=== PATIENT | female | born 1975 | race Two or more races ===

== ENCOUNTER 2024-04-08 10:21 | Emergency (ER) | payer MEDICAID, SELFPAY ==
[2024-04-08 10:32] VITALS: BP 142/77; PULSE 83; RESP 19; TEMP 36.8; O2SAT 97
[2024-04-08 11:01] VITALS: BMI 42.3
--- NOTE | 2024-04-08 11:25 | XR_ITS ---
Examination: PA lateral chest 2 views Technique: Upright PA lateral chest 2 views Exam date and time: April 08, 2024 11:37 AM Comparison March 18, 2020 Indications: Chest pain shortness of breath beginning 3 days ago. Findings: Minimal prominence cardiac contour Mild vascular congestion. No lobar pneumonia or pulmonary edema Impression: Mild vascular congestion
--- NOTE | 2024-04-08 11:25 | PD.EDURI ---
Upper Respiratory Inf. RME/HPI General Chief Complaint: Flu Like Symptoms Stated Complaint: SOB, COUGH, WHEEZING, CHEST PAIN, DIZZINESS Time Seen by Provider: 04/08/24 11:06 Arrival date/time: 04/08/24 10:21 This is a 48-year-old female that comes in with complaints of cough wheezing. Patient states that she was recently diagnosed with influenza on Wednesday patient continues to be on. Tamiflu. Patient notices that she coughs and has a lot of wheezing. Patient denies any past medical history Related Data Home Medications ?Medication ?Instructions ?Recorded ?Confirmed estradiol 1 mg tablet 1 mg PO QHSPRN PRN hormones 07/06/22 07/06/22 medroxyprogesterone 5 mg tablet 5 mg PO QDAY 07/06/22 Previous Rx's ?Medication ?Instructions ?Recorded hydrocodone 5 mg-acetaminophen 325 1 tab PO TID PRN pain #20 tabs 04/30/22 mg tablet albuterol sulfate 90 mcg/actuation 2 puff inhalation QID PRN 04/08/24 aerosol inhaler shortness of breath or wheezing #8.5 grams benzonatate 100 mg capsule 100 mg PO BID PRN cough #14 caps 04/08/24 ibuprofen 800 mg tablet 800 mg PO Q6H PRN pain #10 tabs 04/08/24 Allergies Allergy/AdvReac Type Severity Reaction Status Date / Time No Known Allergies Allergy Verified 07/07/22 07:32 Review of Systems Review of Systems Systems Reviewed: All systems reviewed, normal except as documented Past Medical History Past Medical History CARDIAC: Negative Congestive Heart Failure RESPIRATORY: Negative Chronic Obstructive Pulmonary Disease (COPD) GENITOURINARY: Positive Genitourinary Disorders; Negative Renal Disease ENDOCRINE: Negative Diabetes Mellitus Type 1 or Diabetes Mellitus Type 2 HEMATOLOGIC: Negative Sickle Cell Disease OTHER HISTORY: Negative Blood Transfusions Surgical History SURGICAL: Positive Abdominal Surgery and Tubal Ligation Social History SMOKING STATUS: Never smoker ED Exam General General appearance: Present alert and in no apparent distress Head Head exam: Present atraumatic Eye Eye exam: Present normal appearance, PERRL and EOMI ENT ENT exam: Present normal exam, normal oropharynx and mucous membranes moist Neck Neck exam: Present normal inspection, full ROM and trachea midline Chest Chest inspection: Present normal inspection and symmetric chest wall rise Respiratory Respiratory exam: Present other (mild expiratory wheezing posteriorly ) Cardiovascular Cardiovascular exam: Present regular rate, normal rhythm and normal heart sounds Abdominal Exam Abdominal exam: Present soft and normal bowel sounds Extremities Exam Extremities exam: Present normal inspection and full ROM Back Exam Back exam: Present normal inspection and full ROM Neurological Exam Neurological exam: Present alert, oriented X3 and CN II-XII intact Psychiatric Psychiatric exam: Present normal affect and normal mood Skin Skin exam: Present warm, dry, intact and normal color Course Quality Measures none Orders Category Date Time Status XR chest 2V Stat Exams 04/08/24 11:25 Completed ALBUTEROL RT 0.5ml [Proventil Rt 0.5ml] Med 04/08/24 11:24 Discontinued 2.5 mg INH X1 ONE Ibuprofen Tab [Motrin Tab] Med 04/08/24 11:25 Discontinued 800 mg PO X1 ONE Sodium Chloride Rt Tiara 0.9% [NS Rt Tiara 0.9%] Med 04/08/24 11:24 Discontinued 3 ml INH PRN PRN Vital Signs Vital signs: Vital Signs Temperature 98.3 F 04/08/24 10:32 Pulse Rate 83 04/08/24 10:32 Respiratory Rate 19 04/08/24 10:32 Blood Pressure 142/77 H 04/08/24 10:32 Pulse Oximetry (%) 97 04/08/24 10:32 Oxygen Delivery Method Room Air 04/08/24 10:32 Upper Respiratory Infection MDM Narrative MDM Narrative:: chest x ray: Findings: Minimal prominence cardiac contour Mild vascular congestion. No lobar pneumonia or pulmonary edema Impression: Mild vascular congestion Pt given a breathing tx of albuterol and ibuprofen Pt feels better. Encouraged supportive measures such as rest and increased po intake. Pt told to come back to ED if symptoms change or worsen. Patient data External records reviewed:: [facility] previous records Clinical information provided by:: patient Social determinants that could affect healthcare access:: none Patient has the following chronic illnesses:: none How is presenting disease/condition affected by chronic disease/condition?: no chronic disease Evaluation data The following diagnostics were reviewed and interpreted by me:: radiology exam(s) Lab and/or radiology exams considered but not ordered:: none Interpretation Summary: see note Medications / Prescriptions Medications or Prescriptions considered but not ordered:: none Medication administrations:: Medication Administration History Discontinued Medications Albuterol (Albuterol Rt 2.5 Mg/0.5 Ml Nebu) 2.5 mg INH X1 ONE Stop: 04/08/24 11:25 Last Admin: 04/08/24 12:03 Dose: 2.5 mg Documented By: GEOVANNY Ibuprofen (Ibuprofen Tab 400 Mg Tablet) 800 mg PO X1 ONE Stop: 04/08/24 11:26 Last Admin: 04/08/24 11:45 Dose: 800 mg Documented By: CLEMENCIA Sodium Chloride (Sodium Chloride Rt Tiara 0.9% 3 Ml Nebu) 3 ml INH PRN PRN PRN Reason: SOLN Stop: 05/08/24 11:23 Last Admin: 04/08/24 12:03 Dose: 3 ml Documented By: GEOVANNY see mar Consultations Consultation(s) initiated? (list below): No Diagnosis Upper Respiratory Differential Diagnosis: upper respiratory infection, sinusitis, viral infection, bronchitis and influenza Most likely diagnosis given after review of the tests above:: rad Admission Indicated Admission indicated?: not indicated Admission Request Was there a request for admission?: No Disposition Plan Disposition Plan: Discharge Discharge Attestation Discharge Attestation: The patient and all family members were given an opportunity to ask questions and understood the discharge instructions. Discharge instructions specifically effects, indications for sooner follow up or return to the emergency department, and the expected course of current diagnosis. Patient condition: Stable Discharge Plan Plan Patient Disposition: HOME (Self Care) Patient condition on transfer: Stable Prescriptions/Referrals Prescriptions/Med Rec: New albuterol sulfate 90 mcg/actuation HFA aerosol inhaler 2 puff inhalation QID PRN (Reason: shortness of breath or wheezing) Qty: 8.5 0RF ibuprofen 800 mg tablet 800 mg PO Q6H PRN (Reason: pain) Qty: 10 0RF benzonatate 100 mg capsule 100 mg PO BID PRN (Reason: cough) Qty: 14 0RF No Action hydrocodone-acetaminophen 5-325 mg tablet 1 tab PO TID MDD 3 PRN (Reason: pain) Qty: 20 0RF medroxyprogesterone 5 mg tablet 5 mg PO QDAY Patient Comments: TAKE 1 TABLET BY MOUTH EVERY DAY estradiol 1 mg tablet 1 mg PO QHSPRN PRN (Reason: hormones) Patient Comments: TAKE 1 TABLET BY MOUTH EVERY DAY Problem List Clinical Impression: RAD (reactive airway disease), Influenza B Patient/Caregiver Discharge Instructions Discharge Activity: activity as tolerated Education Materials: ED Influenza (Adult), ED Inhaler Use Additional Instructions: Follow-up with primary provider in 1 to 2 days. Come back to the emergency room symptoms change or worsen. Print Language: [place] Stand Alone Forms: Lucrecia Award Info., Patient Portal Info Letter PA/FOUNTAIN WAITRESS/WAITER Supervising Physician PA/FOUNTAIN WAITRESS/WAITER Supervising Physician: miriam
[2024-04-08] MEDS: IBUPROFEN TAB 400 MG TABLET 800 MG PO (11:45)
[2024-04-08 12:03] VITALS: PULSE 84
[2024-04-08] MEDS: SODIUM CHLORIDE RT SOL 0.9% 3 ML NEBU INH (12:03)
[2024-04-08] MEDS: ALBUTEROL RT 2.5 MG/0.5 ML NEBU INH (12:03)
[2024-04-08 12:04] VITALS: PULSE 89; RESP 20; O2SAT 100
== END 2024-04-08 13:19 | disposition home or self-care (01) ==
LOC: SERX 12:42
PROVIDERS: Emergency Provider Emergency Medicine; PCP Internal Medicine
DX: J45.909 Unspecified asthma, uncomplicated (principal); J10.1 Influenza due to other identified influenza virus with other respiratory manifestations
CPT/HCPCS: 71046; 94640; 99283; A9270

== ENCOUNTER → 2024-05-31 | Outpatient (CLI) | payer MEDICAID, SELFPAY ==
--- NOTE | 2024-05-31 09:00 | XR_ITS ---
Examination: Screening digital mammography, bilateral Computer aided detection 3-D breast Tomosynthesis, bilateral Date and time of exam: May 31, 2024 0853 hours Compared to mammograms dating to June 23, 2017 Indication: Screening Technique: Nonmagnified MLO, CC views of the breasts to been obtained, reconstructed from 3-D Tomosynthesis images. R2 computer aided detection program utilized for evaluation of suspicious masses and/or abnormal calcifications. 3-D Tomosynthesis images obtained. Findings: Scattered areas of fibroglandular density. Benign calcifications. No interval suspicious masses Impression: BI-RADS category II: Benign Findings. Recommend 1 year follow-up mammogram.
== END | disposition home or self-care (01) ==
LOC: CDIM 08:42
PROVIDERS: Referring Provider Nurse Practitioner Family; Visit Provider Nurse Practitioner Family
DX: Z12.31 Encounter for screening mammogram for malignant neoplasm of breast (principal); R92.323 Mammographic fibroglandular density, bilateral breasts; R92.1 Mammographic calcification found on diagnostic imaging of breast
CPT/HCPCS: 77063; 77067

== ENCOUNTER 2024-10-24 15:44 | Emergency (ER) | payer MEDICAID, SELFPAY ==
[2024-10-24 15:45] VITALS: BMI 48.6
[2024-10-24 16:02] VITALS: BP 139/84; PULSE 76; RESP 18; TEMP 36.6; O2SAT 99
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
== END 2024-10-24 18:04 | disposition home or self-care (01) ==
PROVIDERS: Emergency Provider Family Medicine; PCP Internal Medicine
DX: S19.9XXA Unspecified injury of neck, initial encounter (principal); S39.92XA Unspecified injury of lower back, initial encounter; V19.3XXA Pedal cyclist (driver) (passenger) injured in unspecified nontraffic accident, initial encounter; Y93.55 Activity, bike riding
CPT/HCPCS: 72040; 72072; 72100; 99283